=== PATIENT | male | born 1970 | race Caucasian/White ===

== ENCOUNTER 2017-02-18 13:05 | Emergency (ER) | payer OTHER, BC ==
[~2017-02-18] VITALS: Ht 180.3 cm; Wt 84.1 kg
[~2017-02-18 13:05] MED LIST: NOHOMEMEDS
[2017-02-18 13:37] LABS: HEMATOCRIT 45.4 % (38.0-50.0); MCH 32.5 PG (29.0-34.0); MCHC 36.1 G/DL (30.0-36.0); MCV 89.9 FL (86-99); MEAN PLAT.VOLUME 10.8 uM^3 (9.0-12.4); PLATELET COUNT 164 K/uL (156-360); RBC DIS.WIDTH-SD 39.1 % (39-53); RED BLOOD COUNT 5.05 M/uL (4.00-5.50); WHITE BLOOD COUNT 10.9 K/uL (4.1-10.2)
[2017-02-18 13:48] LABS: CHLORIDE 104 mEq/L (99-109); POTASSIUM 3.7 mEq/L (3.7-5.4); SODIUM 140 mEq/L (136-147)
[2017-02-18 13:50] LABS: GLUCOSE 115 mg/dL (70-99)
[2017-02-18 13:51] LABS: ANION GAP 11 MEQ/L (2-14)
[2017-02-18 13:54] LABS: GFR ESTIMATE (CALCULATED) > 59 mL/min/ (58.99-99999); UREA NITROGEN (BUN) 15 mg/dL (9-23)
[2017-02-18] MEDS ORDERED: ZOFRAN ODT4 MG PO (14:18)
[2017-02-18] MEDS ORDERED: PERCOCET 5/31 TABLET PO (14:18)
[2017-02-18 14:24] VITALS: BP 154/115
== END 2017-02-18 14:25 | disposition home or self-care (01) ==
LOC: EME 13:05
PROVIDERS: Nurse Practitioner Family
PROC: 0HQ0XZZ Repair Scalp Skin, External Approach (ICD-10-PCS; principal; 2017-02-18)
DX: S01.01XA Laceration without foreign body of scalp, initial encounter (principal); S06.0X0A Concussion without loss of consciousness, initial encounter; I10 Essential (primary) hypertension
CPT/HCPCS: 70450; 80048; 85027